=== PATIENT | male | born 1950 | race Hispanic/Latino ===

== ENCOUNTER 2019-03-22 08:02 | Outpatient (CLI) | payer BC, MEDICARE ==
--- NOTE | 2019-03-22 08:27 | ULT ---
Exam: Abdominal aorta ultrasound HISTORY: Abdominal aortic aneurysm screening Comparison none TECHNIQUE: Sagittal and transverse imaging of the abdominal aorta is performed. Doppler imaging was a lso performed. FINDINGS: Proximal aorta is obscured by bowel gas. Mid aorta measures 1.9 cm in the sagittal dimension. Distal aorta measures 1.8 cm in the sagittal dimension Right iliac artery measures 1.6 cm in sagittal dimension. Left iliac artery measures 1.1 cm in sagitt al dimension IMPRESSION: No evidence of aneurysm the visualized abdominal aorta. Note, the proximal aorta is obscured by bowel gas.
== END 2019-03-22 08:03 | disposition home or self-care (01) ==
LOC: BICULT 08:02
PROVIDERS: ATTEND Family Medicine
DX: Z13.6 Encounter for screening for cardiovascular disorders (principal)
CPT/HCPCS: 76775